=== PATIENT | male | born 1975 ===

== ENCOUNTER 2017-01-15 16:57 | Emergency (ER) | payer OTHER ==
[~2017-01-15 16:57] MED LIST: LABETALOL HCL100 M1 PO; LISINOPRIL10 M1 PO; NO HOME MEDICATION XX; [UNRECOGNIZED DRUG - OTHER]
[2017-01-15 18:28] LABS: BASO % 0.2 % (0-2); EOS % 1.7 % (0-7); EOSINOPHIL ABSOLUTE COUNT 0.2 tho/cmm (0.0-0.7); HCT-HEMATOCRIT 46.1 % (36.0-53.5); IMMATURE GRANULOCYTES ABSOLUTE 0.02 tho/cmm (0-0.03); IMMATURE GRANULOCYTES PERCENT 0.2 % (0-0.3); LYMPH % 7.4 % (20-45); LYMPH ABSOLUTE COUNT 0.9 tho/cmm (0.8-4.5); MCH (MEAN CORPUSCULAR HGB) 31.2 pg (28.0-32.0); MCHC MEAN CORPUSCULAR HGB CONC 34.7 % (32.0-36.0); MCV (MEAN CELL VOLUME) 89.9 fl (82.0-96.0); MEAN PLATELET VOLUME 9.5 cmc (9.4-12.4); MONO % 2.9 % (0-12); MONOCYTE ABSOLUTE COUNT 0.3 tho/cmm (0.0-1.2); NEUTROPHIL ABSOLUTE COUNT 10.4 tho/cmm (1.6-8.0); NEUTROPHIL-AUTOMATED 10.4 tho/cmm (1.6-8.0); NEUTROPHILS % 87.6 % (40-80); PLATELET COUNT 259 tho/cmm (150-450); RED BLOOD COUNT 5.13 mil/cmm (4.40-5.70); WHITE BLOOD COUNT 11.8 tho/cmm (4.0-10.0)
[2017-01-15 18:34] LABS: PROTHROMBIN TIME 11.3 SECONDS (9.0-13.6)
[2017-01-15 18:44] LABS: ALB/GLOB RATIO 0.8 (0.8-2.0); ALBUMIN 3.7 g/dl (3.5-5.0); ALKALINE PHOSPHATASE 158 U/L (33-138); ALT/SGPT 118 U/L (12-78); BLOOD UREA NITROGEN 19 mg/dl (6-24); CALCIUM 8.4 mg/dl (8.5-10.5); CARBON DIOXIDE-VENOUS 24 mmol/L (22-32); CHLORIDE 103 mmol/l (96-110); GLUCOSE 137 mg/dL (70-110); LIPASE 100 U/L (73-393); SODIUM 135 mmol/L (135-145); eGFR VALUE FOR BLACK >90 mL/Min
[2017-01-15 18:47] LABS: ANION GAP 12 mmol/L (0-20); AST/SGOT 63 U/L (10-40)
[2017-02-12] MEDS ORDERED: PRINIVIL5 M1 PO (16:06)
[2017-02-12] MEDS ORDERED: NORVASC5 M2 PO (16:06)
== END 2017-01-15 19:40 ==
LOC: EDMED 16:57
PROVIDERS: Emergency Medicine
DX: K64.8 Other hemorrhoids (principal); I25.10 Atherosclerotic heart disease of native coronary artery without angina pectoris; I10 Essential (primary) hypertension; F17.210 Nicotine dependence, cigarettes, uncomplicated; Z79.899 Other long term (current) drug therapy
CPT/HCPCS: J7030